=== PATIENT | male | born 1985 | race Caucasian/White ===

== ENCOUNTER 2017-12-11 10:07 | Emergency (ER) | payer OTHER ==
[2017-12-11 11:24] VITALS: BP 122/81
--- NOTE | 2017-12-11 11:51 | UC ---
Back Pain HPI - HPI Summary HPI Summary: Otherwise healthy 32 yo male with c/o back pain after completing deadlift exercise last night. Pain radiates across low back, not down either leg. No numbness, tingling or weakness of LE. No loss of bowel/bladder control. He has had similar symptoms in the past that has been less severe in nature. - History of Current Complaint Chief Complaint: UCBackPain Stated Complaint: BACK PAIN Pain Intensity: 10 - Allergies/Home Medications Allergies/Adverse Reactions: Allergies Allergy/AdvReac Type Severity Reaction Status Date / Time No Known Allergies Allergy Verified 12/11/17 11:24 Home Medications: Home Medications Acetaminop/Codeine 30 MG TAB* [Tylenol/Codeine 30 MG TAB*] 12/11/17 [History] Ibuprofen 600 mg PO 12/11/17 [History] PMH/Surg Hx/FS Hx/Imm Hx Previously Healthy: Yes - Surgical History Surgical History: Yes Surgery Procedure, Year, and Place: hernia repair as a child - Family History Known Family History: Positive: None - Social History Alcohol Use: Occasionally Substance Use Type: None Smoking Status (MU): Never Smoked Tobacco Review of Systems Constitutional: Negative Skin: Negative Eyes: Negative ENT: Negative Respiratory: Negative Cardiovascular: Negative Gastrointestinal: Negative Genitourinary: Negative Motor: Negative Neurovascular: Negative Musculoskeletal: Arthralgia - back pain Neurological: Negative Psychological: Negative Is Patient Immunocompromised?: No All Other Systems Reviewed And Are Negative: Yes Physical Exam Triage Information Reviewed: Yes Appearance: Pain Distress - mild Vital Signs: Initial Vital Signs Temp 98.7 F 12/11/17 11:20 Pulse 98 12/11/17 11:20 Resp 18 12/11/17 11:20 BP 122/81 12/11/17 11:20 Pulse Ox 99 12/11/17 11:20 Vital Signs Reviewed: Yes Neck: Positive: Supple, Nontender Respiratory Exam: Normal Cardiovascular Exam: Normal Abdominal Exam: Normal Musculoskeletal: Positive: Other: - TTP over mid lower lumbar region Neurological: Positive: Other: - strength and sensation intact Psychological Exam: Normal Skin Exam: Normal Back Pain Course/Dx - Course Course Of Treatment: Otherwise healthy 32 yo male with c/o low back pain. No neurologic symptoms. Recommend steroid and muscle relaxant for relief. - Differential Dx/Diagnosis Differential Diagnosis/HQI/PQRI: Herniated Disc, Strain, Sprain Provider Diagnoses: 1. Low back pain - acute lumbar strain Discharge - Sign-Out/Discharge Documenting (check all that apply): Discharge/Admit/Transfer - Discharge Plan Condition: Stable Disposition: HOME Prescriptions: Cyclobenzaprine TAB* [Flexeril 10 MG TAB*] 10 mg PO TID PRN #30 tab PRN Reason: muscle spasm methylPREDNISolone [Medrol Dosepak 4 MG*] 4 mg PO .SEE GAGAN INSTRUCTION #1 gagan Patient Education Materials: Back Pain (ED), Lower Back Exercises (ED) Forms: *Work Release Referrals: Sai Molina MD [Primary Care Provider] - If Needed Additional Instructions: Instructions: 1. Use muscle relaxant and steroids as directed 2. Apply heat frequently 3. Complete back exercises as tolerated - Billing Disposition and Condition Condition: STABLE Disposition: HOME
== END 2017-12-11 11:51 | disposition home or self-care (01) ==
LOC: UCEAST 10:07
DX: S39.012A Strain of muscle, fascia and tendon of lower back, initial encounter (principal); X50.3XXA Overexertion from repetitive movements, initial encounter; Y93.B9 Activity, other involving muscle strengthening exercises; Y92.9 Unspecified place or not applicable
CPT/HCPCS: 99212; G0463